=== PATIENT | female | born 1945 | race Two or more races ===

== ENCOUNTER 2018-07-28 19:10 | Observation (INO) | payer MEDICARE, MEDICAID ==
--- NOTE | 2018-07-28 19:34 | RADIOLOGY REPORT (SQ) ---
EXAM DESCRIPTION: CT HEAD WITHOUT COMPLETED DATE/TIME: 07/28/2018 7:21 pm REASON FOR STUDY: L sided weakness, leaning COMPARISON: None. TECHNIQUE: Axial images acquired through the brain without intravenous contrast. Images reviewed wi th bone, brain and subdural windows. Additional sagittal and coronal reconstructions were generated. Images stored on PACS. All CT scanners at this facility use dose modulation, iterative reconstruction, and/or weight based d osing when appropriate to reduce radiation dose to as low as reasonably achievable (ALARA). [facility]: Dose Right [facility]: CareDose [facility]: Dose Right [facility]: Teradose 4D [facility]: Smart Easy Tempo RADIATION DOSE: CT Rad equipment meets quality standard of care and radiation dose reduction techniq ues were employed. CTDIvol: 53.2 mGy. DLP: 1124 mGy-cm. mGy. LIMITATIONS: None. FINDINGS: VENTRICLES: Normal size and contour. CEREBRUM: No masses. No hemorrhage. No midline shift. No evidence for acute infarction. Normal gra y/white matter differentiation. No areas of low density in the white matter. CEREBELLUM: No masses. No hemorrhage. No alteration of density. No evidence for acute infarction. EXTRAAXIAL SPACES: No fluid collections. No masses. ORBITS AND GLOBE: No intra- or extraconal masses. Normal contour of globe without masses. CALVARIUM: No fracture. PARANASAL SINUSES: No fluid or mucosal thickening. SOFT TISSUES: No mass or hematoma. OTHER: No other significant finding. IMPRESSION: NORMAL BRAIN CT WITHOUT CONTRAST. EVIDENCE OF ACUTE STROKE: NO. COMMENT: Pertinent positive or negative findings of the imaging study reported as a CRITICAL EXAM t o ER PROVIDER at19:28 on 07/28/2018. Category of Critical Exam: Stroke protocol Quality ID # [id number]: Final reports with documentation of one or more dose reduction techniques (e.g., Au tomated exposure control, adjustment of the mA and/or kV according to patient size, use of iterative reconstruction technique) TECHNICAL DOCUMENTATION: JOB ID: [id number] [employer]- All Rights Reserved Reading location - IP/workstation name: [email or web address]
--- NOTE | 2018-07-28 19:35 | RADIOLOGY REPORT (SQ) ---
EXAM DESCRIPTION: CHEST SINGLE VIEW COMPLETED DATE/TIME: 07/28/2018 7:24 pm REASON FOR STUDY: STROKE ALERT COMPARISON: None. EXAM PARAMETERS: NUMBER OF VIEWS: One view. TECHNIQUE: Single frontal radiographic view of the chest acquired. RADIATION DOSE: NA LIMITATIONS: None. FINDINGS: LUNGS AND PLEURA: No opacities, masses or pneumothorax. No pleural effusion. MEDIASTINUM AND HILAR STRUCTURES: No masses. Contour normal. HEART AND VASCULAR STRUCTURES: Heart normal in size. Normal vasculature. BONES: No acute findings. HARDWARE: None in the chest. OTHER: No other significant finding. IMPRESSION: NO ACUTE RADIOGRAPHIC FINDING IN THE CHEST. TECHNICAL DOCUMENTATION: JOB ID: [id number] [email or web address]- All Rights Reserved Reading location - IP/workstation name: [email or web address]
[2018-07-28 20:32] LABS: ABSOLUTE LYMPHOCYTES (AUTO) 0.8 10^3/uL (0.5-4.7); ABSOLUTE MONOCYTES (AUTO) 0.8 10^3/uL (0.1-1.4); ABSOLUTE NEUT (AUTO) 6.1 10^3/uL (1.7-8.2); BASOPHILS % (AUTO) 0.3 % (0-2); EOSINOPHILS % (AUTO) 0.1 % (0-6); HEMATOCRIT 35.2 % (36.0-47.0); LYMPHOCYTES % (AUTO) 10.5 % (13-45); MEAN CORPUSCULAR HEMOGLOBIN 31.1 pg (27.0-33.4); MEAN CORPUSCULAR HGB CONC 34.1 g/dL (32.0-36.0); MEAN CORPUSCULAR VOLUME 91 fl (80-97); MONOCYTES % (AUTO) 10.4 % (3-13); RED BLOOD COUNT 3.86 10^6/uL (3.72-5.28); RED CELL DISTRIBUTION WIDTH 14.6 % (11.5-14.0); SEGMENTED NEUTROPHILS % (AUTO) 78.7 % (42-78); TOTAL CELLS COUNTED % (AUTO) 100 %; WHITE BLOOD COUNT 7.8 10^3/uL (4.0-10.5)
--- NOTE | 2018-07-28 20:42 | ER Document Report ---
ED Dizziness/Weakness - General Chief Complaint: Weakness Stated Complaint: WEAKNESS Time Seen by Provider: 07/28/18 19:32 Mode of Arrival: Stretcher Information source: Patient, Relative Notes: Patient is a 72-year-old female with a history of seizure disorder and hypertension who presents with reported weakness this morning approximately 12 hours prior to arrival. Patient reports that she felt weak this morning but "now I feel fine." Family at bedside is insistent that the patient was unable to walk and was leaning to the left. Patient denies headache, head injury, chest pain, weakness, or any other symptom at this time. She reports that she "feels like myself" and denies recent injury or illness. No recent medication changes. No history of stroke or heart attack. TRAVEL OUTSIDE OF THE [place] IN LAST 30 DAYS: No - HPI Patient complains to provider of: Weakness Onset: This morning Onset/Duration: Sudden Quality of pain: No pain Severity: Mild Pain Level: Denies Context: denies: Chronic dizziness, Trauma, Vertigo Associated symptoms: None Exacerbated by: denies: Change in position, Movement of head, Other Baseline gait: Uses a cane - Related Data Allergies/Adverse Reactions: amlodipine besylate [From NanoH2O] Allergy (Unknown, Verified 12/17/12 10:47) cant remember reaction Past Medical History - General Information source: Patient, Relative - Social History Smoking Status: Former Smoker Cigarette use (# per day): No Chew tobacco use (# tins/day): No Smoking Education Provided: No Frequency of alcohol use: None Drug Abuse: None Lives with: Family Family History: Reviewed & Not Pertinent Patient has suicidal ideation: No Patient has homicidal ideation: No - Medical History Medical History: Other - HTN, seizure disorder - Past Medical History Cardiac Medical History: Reports: Hx Hypertension - meds many years Denies: Hx Coronary Artery Disease, Hx Heart Attack Pulmonary Medical History: Denies: Hx Asthma, Hx Bronchitis, Hx COPD, Hx Pneumonia EENT Medical History: Reports: None Neurological Medical History: Reports: Hx Seizures - last one 2005. Denies: Hx Cerebrovascular Accident Endocrine Medical History: Reports: None Renal/ Medical History: Reports: None Malignancy Medical History: Reports: None GI Medical History: Reports: None Musculoskeletal Medical History: Reports None, Denies Hx Arthritis - no dx Skin Medical History: Reports None Psychiatric Medical History: Reports: None Traumatic Medical History: Reports: None Infectious Medical History: Reports: None Surgical Hx: Negative Past Surgical History: Reports: None - Immunizations Immunizations up to date: Yes Hx Diphtheria, Pertussis, Tetanus Vaccination: No Review of Systems - Review of Systems Constitutional: Weakness. denies: Fever, Malaise EENT: No symptoms reported Cardiovascular: No symptoms reported Respiratory: No symptoms reported Gastrointestinal: No symptoms reported Genitourinary: No symptoms reported Female Genitourinary: No symptoms reported Musculoskeletal: No symptoms reported Skin: No symptoms reported Hematologic/Lymphatic: No symptoms reported Neurological/Psychological: No symptoms reported -: Yes All other systems reviewed and negative Physical Exam - Vital signs Vitals: Resp Pulse Ox 21 H 100 07/28/18 19:30 07/28/18 19:30 Interpretation: Normal - General General appearance: Appears well, Alert - HEENT Head: Normocephalic, Atraumatic Eyes: Normal Pupils: PERRL - Respiratory Respiratory status: No respiratory distress Chest status: Nontender Breath sounds: Normal Chest palpation: Normal - Cardiovascular Rhythm: Regular Heart sounds: Normal auscultation Murmur: No - Abdominal Inspection: Normal Distension: No distension Bowel sounds: Normal Tenderness: Nontender Organomegaly: No organomegaly - Rectal Tenderness: No - Deferred - Genitourinary Notes: Deferred - Back Back: Normal, Nontender - Extremities General upper extremity: Normal inspection, Nontender, Normal color, Normal ROM , Normal temperature General lower extremity: Normal inspection, Nontender, Normal color, Normal ROM , Normal temperature, Normal weight bearing. No: Ileana's sign - Neurological Neuro grossly intact: Yes Cognition: Normal Orientation: AAOx4 [place] Coma Scale Eye Opening: Spontaneous [place] Coma Scale Verbal: Oriented [place] Coma Scale Motor: Obeys Commands [place] Coma Scale Total: 15 Speech: Normal Motor strength normal: LUE, RUE, LLE, RLE Sensory: Normal - Psychological Associated symptoms: Normal affect, Normal mood - Skin Skin Temperature: Warm Skin Moisture: Dry Skin Color: Normal Course - Re-evaluation Re-evalutation: 07/28/18 21:04 Blood work, including cardiac enzymes and BNP, are normal. Urinalysis is still pending. Head CT and chest x-ray are both normal without acute pathology. Patient will be admitted for likely transient ischemic attack. 07/28/18 21:28 Dr. Pacheco will admit the patient. - Vital Signs Vital signs: Temp Pulse Resp BP Pulse Ox 16 163/103 H 100 07/28/18 22:03 07/28/18 22:03 07/28/18 22:03 - Laboratory Result Diagrams: 07/28/18 19:57 07/28/18 19:57 Laboratory results interpreted by me: 07/28/18 07/28/18 07/28/18 19:57 19:57 21:01 Hct 35.2 L RDW 14.6 H Plt Count 88 L Seg Neutrophils % 78.7 H Lymphocytes % 10.5 L Est GFR (Non-Af Amer) 51 L Calcium 11.4 H ALT < 6 L Total Protein 8.3 H Urine Blood MODERATE H Ur Leukocyte Esterase MODERATE H - Diagnostic Test Radiology reviewed: Reports reviewed - EKG Interpretation by Me EKG shows normal: Sinus rhythm Rate: Normal Rhythm: NSR Flom/QRS: No: Right axis deviation, Left axis deviation, RBBB, LBBB, IVCD, LAHB/ LAFB, LPHB/LPFB, Bifasicular block Heart block present: No: 1st Degree, Mobitz 1, Mobitz 2, CHB (3rd degree block) When compared to previous EKG there are: No significant change - Consults Dr. Pacheco Time consulted: 21:28 - Will admit the patient Consulted provider: will come to ER Discharge - Discharge Clinical Impression: Weakness, TIA (transient ischemic attack) Condition: Good Disposition: ADMITTED INPATIENT Admitting Provider: Hospitalist Unit Admitted: Medical Floor Referrals: KAMILA SIERRA MD [Primary Care Provider] - Follow up as needed
[2018-07-28 20:47] LABS: ALANINE AMINOTRANSFERASE < 6 U/L (9-52); ALBUMIN 4.1 g/dL (3.5-5.0); ALKALINE PHOSPHATASE 41 U/L (38-126); ANION GAP 13 (5-19); ASPARTATE AMINO TRANSFERASE 26 U/L (14-36); BILIRUBIN,DIRECT 0.4 mg/dL (0.0-0.4); BILIRUBIN,TOTAL 0.5 mg/dL (0.2-1.3); BLOOD UREA NITROGEN 18 mg/dL (7-20); CALCIUM 11.4 mg/dL (8.4-10.2); CARBON DIOXIDE 28 mmol/L (22-30); CHLORIDE 102 mmol/L (98-107); CREATINE KINASE 32 U/L (30-135); GLUCOSE 96 mg/dL (75-110); POTASSIUM 4.2 mmol/L (3.6-5.0); SODIUM 142.9 mmol/L (137-145); TOTAL PROTEIN 8.3 g/dL (6.3-8.2)
[2018-07-28 20:49] LABS: ALCOHOL < 10 mg/dL (NONE DETECTED)
[2018-07-28 20:58] LABS: PLATELET COUNT 88 10^3/uL (150-450)
[2018-07-28 21:02] LABS: NT PRO BNP 165 pg/mL (5-900)
[2018-07-28 21:03] LABS: CREATINE KINASE MB < 0.22 ng/mL (<4.55); TROPONIN I < 0.012 ng/mL
[2018-07-28 21:22] LABS: APPEARANCE,URINE SLIGHTLY-CLOUDY; BILIRUBIN,URINE NEGATIVE (NEGATIVE); COLOR,URINE YELLOW; GLUCOSE, URINE NEGATIVE (NEGATIVE); KETONES,URINE NEGATIVE (NEGATIVE); LEUKOCYTE ESTERASE,URINE MODERATE (NEGATIVE); NITRITE,URINE NEGATIVE (NEGATIVE); PROTEIN,URINE NEGATIVE (NEGATIVE); URINE SPECIFIC GRAVITY 1.014; UROBILINOGEN,URINE NEGATIVE mg/dL (<2.0)
[2018-07-28 21:35] LABS: URINE AMPHETAMINES SCREEN NEGATIVE; URINE BARBITURATES SCREEN NEGATIVE; URINE BENZODIAZEPINES SCREEN NEGATIVE; URINE COCAINE SCREEN NEGATIVE; URINE MARIJUANA (THC) SCREEN NEGATIVE; URINE METHADONE SCREEN NEGATIVE; URINE PHENCYCLIDINE SCREEN NEGATIVE
[2018-07-28] MEDS ORDERED: ACETAMINOPHEN 325 MG TABLET PO PRN (23:07)
[2018-07-28] MEDS ORDERED: MAG HYDROX/AL HYDROX/SIMETH SUSP 30 ML UDCUP PO PRN (23:07)
[2018-07-28] MEDS ORDERED: NORMAL SALINE 1000 ML 1,000 ML IV PRN (23:07)
[2018-07-28] MEDS ORDERED: PROMETHAZINE HCL 25 MG TABLET PO PRN (23:07)
[2018-07-28] MEDS ORDERED: PROMETHAZINE HCL INJ 25 MG/1 ML VIAL IV PRN (23:07)
[2018-07-28] MEDS ORDERED: METOPROLOL TARTRATE PF/INJ 5 MG/5 ML SDV IV PRN (23:17)
[2018-07-28] MEDS ORDERED: PANTOPRAZOLE SODIUM 40 MG VIAL IV ONE (23:30)
[2018-07-28] MEDS ORDERED: DIVALPROEX SODIUM 250 MG TABLET.DR PO ONE (23:30)
[2018-07-28] MEDS ORDERED: METOPROLOL SUCCINATE 50 MG TAB.SR.24H PO ONE (23:30)
--- NOTE | 2018-07-29 00:22 | PDOC H&P ---
History of Present Illness Admission Date/PCP: 07/28/18 22:55 KAMILA SIERRA MD Patient complains of: Lower extremity weakness History of Present Illness: MORGAN ESPINAL is a 72 year old female who is accompanied by his niece at the bedside and has medical history remarkable for hypertension, seizures and "ophthalmic amyloidosis", comes to the emergency department as worsening lower extremities weakness, apparently went out to pay some bills and the patient was unable to get out of the car, it was noted that she was weaker on her right lower extremities, she denies any tingling, numbness of any extremity, vision problems, his niece tells me that she was doing if any movements with the right side of her mouth and tells me that she noticed that her 4 extremities are stiff on and off. Patient walks with a walker secondary to unsteadiness. The patient does not have any history of strokes in the past. Denies nausea, vomiting, dizziness, fever, chills, shortness of breath, chest pain, abdominal pain. Denies fecal or urinary incontinence. Patient seems mildly confused in the emergency department unable to answer some questions timely and her niece tells me that this is not her baseline usually she is sharp answering questions. CT of the head negative. There was concerns for TIA versus acute stroke and decided to keep the patient under observation tonight. Past Medical History Past Medical History: Eyes amyloidosis Cardiac Medical History: Reports: Hypertension - meds many years Neurological Medical History: Reports: Seizures - last one 2005 Endocrine Medical History: Reports: None Renal/ Medical History: Reports: None Malignancy Medical History: Reports: None GI Medical History: Reports: None Musculoskeltal Medical History: Reports: None Skin Medical History: Reports: None Psychiatric Medical History: Reports: None Traumatic Medical History: Reports: None Infectious Medical History: Reports: None Past Surgical History Past Surgical History: Reports: None Social History Lives with: Family Smoking Status: Former Smoker Frequency of Alcohol Use: None Hx Recreational Drug Use: No Hx Prescription Drug Abuse: No Past Social History Note: Lives alone but her niece check on her Family History Family History: Reviewed & Not Pertinent Family History: Knees with history of myocardial infarction, father in his 50s with brain cancer, mother at 83 years old with heart problems, sister, brother with history of IA, 3 brothers with Alzheimer's disease Parental Family History Reviewed: Yes - As above Children Family History Reviewed: Yes Sibling(s) Family History Reviewed.: Yes Medication/Allergy Home Medications: Cholecalciferol (Vitamin D3) [Vitamin D3 5000 unit Tablet] 5,000 unit PO DAILY 12/17/12 Meloxicam 7.5 mg PO PRN 12/17/12 Metoprolol Succinate [Toprol Xl 50 mg Tab.sr] 50 mg PO QHS 12/17/12 Phenobarbital 200 mg PO QHS 12/17/12 Phenytoin Sodium Extended [Dilantin] 60 mg PO QHS 12/17/12 Potassium Chloride 10 meq PO DAILY 12/17/12 Tramadol HCl 50 mg PO DAILY 12/17/12 Triamterene/Hydrochlorothiazid [Triamterene-Hctz 50-25 mg Cap] 1 each PO DAILY 12/17/12 Allergies/Adverse Reactions: amlodipine besylate [From Electrochaea] Allergy (Unknown, Verified 12/17/12 10:47) cant remember reaction Review of Systems Review of Systems: As outlined in the HPI, all others negative Physical Exam Vital Signs: Temp Pulse Resp BP Pulse Ox 77 21 H 138/80 H 98 07/28/18 23:08 07/28/18 23:08 07/28/18 23:08 07/28/18 23:08 Intake & Output 07/27/18 07/28/18 07/29/18 06:59 06:59 06:59 Weight 68.8 kg Additional comments: General appearance: Well-developed, well-nourished, alert and cooperative, and appears to be in no acute distress Head: Normocephalic Eyes: PEERL, EOMI, vision is grossly intact. Ears: External auditory canal and tympanic membranes clear, hearing grossly intact. Nose: No nasal discharge. Throat: Oral cavity and pharynx normal. No inflammation, swelling, exudate or lesions. Neck: Neck supple, nontender without lymphadenopathy, masses or thyromegaly. Cardiac: Normal S1 and S2. No S3, S4 or murmurs. Rhythm is regular. There is no cyanosis or pallor. Extremities are warm and well perfused. Capillary refill is less than 2 seconds. No carotid bruits. Lungs: Clear to auscultation and percussion without rales, rhonchi, wheezing or diminished breath sounds. Not using accessory muscles. Abdomen: Positive bowel sounds. Soft. Nondistended, nontender. No guarding or rebound. No masses. No hepatosplenomegaly Extremities: No significant deformity or joint abnormality. No edema. Peripheral pulses intact. No varicosities. Neurological: Cranial nerves II through XII grossly intact. Strength and sensation decreased in both lower extremities, cannot hold any of both lower extremities up on 30 degrees Skin: Skin normal color, texture and turgor with no lesions or eruptions, warm and dry. Psychiatric: The mental examination revealed the patient was oriented to person , unable to tell me the year, knows the month, could not tell me the president, was able to recognize her knees. Results Laboratory Results: 07/28/18 07/28/18 07/28/18 19:57 19:57 19:57 WBC 7.8 RBC 3.86 Hgb 12.0 Hct 35.2 L MCV 91 MCH 31.1 MCHC 34.1 RDW 14.6 H Plt Count 88 L Seg Neutrophils % 78.7 H Lymphocytes % 10.5 L Monocytes % 10.4 Eosinophils % 0.1 Basophils % 0.3 Absolute Neutrophils 6.1 Absolute Lymphocytes 0.8 Absolute Monocytes 0.8 Absolute Eosinophils 0.0 Absolute Basophils 0.0 Sodium 142.9 Potassium 4.2 Chloride 102 Carbon Dioxide 28 Anion Gap 13 BUN 18 Creatinine 1.06 Est GFR ( Amer) > 60 Est GFR (Non-Af Amer) 51 L Glucose 96 Calcium 11.4 H Total Bilirubin 0.5 Direct Bilirubin 0.4 AST 26 ALT < 6 L Alkaline Phosphatase 41 Creatine Kinase 32 CK-MB (CK-2) < 0.22 Troponin I < 0.012 NT-Pro-B Natriuret Pep 165 Total Protein 8.3 H Albumin 4.1 Urine Color Urine Appearance Urine pH Ur Specific [place] Urine Protein Urine Glucose (UA) Urine Ketones Urine Blood Urine Nitrite Urine Bilirubin Urine Urobilinogen Ur Leukocyte Esterase Urine WBC (Auto) Urine RBC (Auto) Squamous Epi Cells Auto Urine Mucus (Auto) Urine Ascorbic Acid Urine Opiates Screen Urine Methadone Screen Ur Barbiturates Screen Ur Phencyclidine Scrn Ur Amphetamines Screen U Benzodiazepines Scrn Urine Cocaine Screen U Marijuana (THC) Screen Serum Alcohol < 10 07/28/18 07/28/18 21:01 21:01 WBC RBC Hgb Hct MCV MCH MCHC RDW Plt Count Seg Neutrophils % Lymphocytes % Monocytes % Eosinophils % Basophils % Absolute Neutrophils Absolute Lymphocytes Absolute Monocytes Absolute Eosinophils Absolute Basophils Sodium Potassium Chloride Carbon Dioxide Anion Gap BUN Creatinine Est GFR ( Amer) Est GFR (Non-Af Amer) Glucose Calcium Total Bilirubin Direct Bilirubin AST ALT Alkaline Phosphatase Creatine Kinase CK-MB (CK-2) Troponin I NT-Pro-B Natriuret Pep Total Protein Albumin Urine Color YELLOW Urine Appearance SLIGHTLY-CLOUDY Urine pH 5.0 Ur Specific [place] 1.014 Urine Protein NEGATIVE Urine Glucose (UA) NEGATIVE Urine Ketones NEGATIVE Urine Blood MODERATE H Urine Nitrite NEGATIVE Urine Bilirubin NEGATIVE Urine Urobilinogen NEGATIVE Ur Leukocyte Esterase MODERATE H Urine WBC (Auto) 17 Urine RBC (Auto) 2 Squamous Epi Cells Auto 1 Urine Mucus (Auto) RARE Urine Ascorbic Acid NEGATIVE Urine Opiates Screen NEGATIVE Urine Methadone Screen NEGATIVE Ur Barbiturates Screen NEGATIVE Ur Phencyclidine Scrn NEGATIVE Ur Amphetamines Screen NEGATIVE U Benzodiazepines Scrn NEGATIVE Urine Cocaine Screen NEGATIVE U Marijuana (THC) Screen NEGATIVE Serum Alcohol Impressions: Chest X-Ray 07/28/18 00:00 IMPRESSION: NO ACUTE RADIOGRAPHIC FINDING IN THE CHEST. Head CT 07/28/18 00:00 IMPRESSION: NORMAL BRAIN CT WITHOUT CONTRAST. EVIDENCE OF ACUTE STROKE: NO. Assessment & Plan - Diagnosis (1) Weakness Is this a current diagnosis for this admission?: Yes Plan: Patient comes with lower extremity weakness, there is bilateral but apparently some point here right lower extremity was weaker than the left, at the time of my examination both at the same strenght 2-3/5. I am not too convinced that this is secondary to TIA or acute stroke, for now I will place an order for an MRI of the brain, PT, OT and patient has to be reevaluated to order full core measures. Patient usually walks with a cane for steadiness. Today patient noted mildly confused from her baseline. CT of the head negative. (2) Seizure disorder Is this a current diagnosis for this admission?: Yes Plan: Patient with history of seizure disorder, will continue with her divalproex, I can see that she was on phenytoin in the past but I could not see this medication in her bag of medications in the room. We will have to clarify if she is on this medication to resume it. (3) Acute encephalopathy Is this a current diagnosis for this admission?: Yes Plan: Patient comes mildly confused, as per her niece this is not her baseline. MRI of the brain has been ordered. Urinalysis negative for acute infection. (4) Hypertension Qualifiers: Hypertension type: unspecified Qualified Code(s): I10 - Essential (primary ) hypertension Is this a current diagnosis for this admission?: Yes Plan: Blood pressure 121/86, we are going to try to not drop this blood pressure much , place her on IV metoprolol as needed. Patient will have some permissive hypertension and to clarify her diagnosis. (5) DVT prophylaxis Is this a current diagnosis for this admission?: Yes Plan: Lovenox - Time Time Spent: 50 to 70 Minutes - Plan Summary Plan Summary: Plan discussed with patient and niece at the bedside, agree with it.
[2018-07-29 04:17] LABS: HEMATOCRIT 32.9 % (36.0-47.0); HEMOGLOBIN 11.3 g/dL (12.0-15.5); MEAN CORPUSCULAR HEMOGLOBIN 31.1 pg (27.0-33.4); MEAN CORPUSCULAR HGB CONC 34.4 g/dL (32.0-36.0); MEAN CORPUSCULAR VOLUME 90 fl (80-97); RED BLOOD COUNT 3.64 10^6/uL (3.72-5.28); RED CELL DISTRIBUTION WIDTH 14.1 % (11.5-14.0); WHITE BLOOD COUNT 7.2 10^3/uL (4.0-10.5)
[2018-07-29 04:19] LABS: PLATELET COUNT 68 10^3/uL (150-450)
[2018-07-29 04:38] LABS: ANION GAP 10 (5-19); BLOOD UREA NITROGEN 17 mg/dL (7-20); CALCIUM 10.6 mg/dL (8.4-10.2); CARBON DIOXIDE 28 mmol/L (22-30); CHLORIDE 103 mmol/L (98-107); GLUCOSE 120 mg/dL (75-110); POTASSIUM 3.5 mmol/L (3.6-5.0); SODIUM 141.2 mmol/L (137-145)
[2018-07-29] MEDS ORDERED: TRAMADOL HCL 50 MG TABLET PO SCH (10:00)
[2018-07-29] MEDS ORDERED: POTASSIUM CHLORIDE 10 MEQ CAPSULE.ER PO SCH (10:00)
[2018-07-29] MEDS ORDERED: ENOXAPARIN SODIUM INJ 40 MG/0.4 ML DISP.SYRIN SUBCUT SCH (10:00)
[2018-07-29] MEDS ORDERED: [UNRECOGNIZED DRUG - OTHER] PO SCH (10:00)
[2018-07-29] MEDS ORDERED: MELOXICAM 7.5 MG TABLET PO SCH (10:00)
[2018-07-29] MEDS ORDERED: CHOLECALCIFEROL (D3) 1,000 UNIT TABLET PO SCH (10:00)
--- NOTE | 2018-07-29 11:23 | EKG REPORT ---
SEVERITY:- ABNORMAL ECG - SINUS RHYTHM PROBABLE POSTERIOR INFARCT : Confirmed by: Vikas Gorman 29-Jul-2018 11:22:24
[2018-07-29] MEDS: DIVALPROEX SODIUM 250 MG TABLET.DR PO SCH ×2 (11:31→17:29)
--- NOTE | 2018-07-29 12:06 | RADIOLOGY REPORT (SQ) ---
EXAM DESCRIPTION: MRI HEAD WITHOUT COMPLETED DATE/TIME: 07/29/2018 10:34 am REASON FOR STUDY: acute change/facial droop left-sided weakness COMPARISON: CT brain 07/28/2018 TECHNIQUE: Multiplanar imaging includes non-contrasted T1, T2, FLAIR, and diffusion with ADC map seq uences. Images stored on PACS. LIMITATIONS: None. FINDINGS: ANATOMY: No developmental anomalies. Normal vascular flow voids. Pituitary fossa normal. CSF SPACES: Normal in size and contour. No hemorrhage. CEREBRUM: Sulci and gyri normal in size and contour. Normal white matter signal on FLAIR imaging. No evidence of hemorrhage, mass, or extraaxial fluid collection. POSTERIOR FOSSA: Minimal pontine chronic small vessel ischemic change on FLAIR image 10 and 11. No h emorrhage. No edema, masses or mass effect. Internal auditory canals, cerebello-pontine angles, mast oids normal. DIFFUSION IMAGING: Negative for acute or sub-acute infarction. ORBITS: No masses. Globes post cataract surgery PARANASAL SINUSES: No fluid levels. Mucosa normal. OTHER: No other significant finding. IMPRESSION: Tiny chronic appearing pontine infarcts. No acute ischemic change. No acute intracranial hemorrhage, mass effect, or midline shift EVIDENCE OF ACUTE STROKE: NO. TECHNICAL DOCUMENTATION: JOB ID: [id number] [employer]- All Rights Reserved Reading location - IP/workstation name: [email or web address]
--- NOTE | 2018-07-29 19:02 | PDOC PROGRESS REPORT ---
Subjective Progress Note for:: 07/29/18 Subjective:: Ms. Pinzon is a 72 yr old female with a PMH of hypertension, seizures and "ophthalmic amyloidosis" who was initially brought in due to worsening leg weakness (?R>L leg). She was admitted for possible TIA. Upon encounter this morning, she was not in distress. She denies acute complaint. She was noted to have very mild right foot weakness initially but on repeated testing, she had equal lower extremity strength. She was also able to squeeze both hands of examining provider with equal strength. Reason For Visit: LOWER EXTREMITIES, WEAKNESS Physical Exam Vital Signs: Temp Pulse Resp BP Pulse Ox 98.2 F 59 L 18 138/81 H 100 07/29/18 16:00 07/29/18 18:00 07/29/18 18:12 07/29/18 18:12 07/29/18 18:12 Intake & Output 07/28/18 07/29/18 07/30/18 06:59 06:59 06:59 Output Total 200 200 Balance -200 -200 Weight 131 lb 9.855 oz General appearance: PRESENT: no acute distress, well-developed, well-nourished Head exam: PRESENT: atraumatic, normocephalic Eye exam: PRESENT: conjunctiva pink, EOMI, PERRLA. ABSENT: scleral icterus Ear exam: PRESENT: normal external ear exam Mouth exam: PRESENT: moist, tongue midline Neck exam: ABSENT: carotid bruit, JVD, lymphadenopathy, thyromegaly Respiratory exam: PRESENT: clear to auscultation shilpa. ABSENT: rales, rhonchi, wheezes Cardiovascular exam: PRESENT: RRR. ABSENT: diastolic murmur, rubs, systolic murmur Pulses: PRESENT: normal dorsalis pedis pul GI/Abdominal exam: PRESENT: normal bowel sounds, soft. ABSENT: distended, guarding, mass, organolmegaly, rebound, tenderness Rectal exam: PRESENT: deferred Neurological exam: PRESENT: alert, awake, motor sensory deficit - 4+ right motor strength on right leg Results Laboratory Results: 07/29/18 04:07 07/29/18 04:07 07/29/18 07/29/18 07/29/18 04:07 04:07 04:07 WBC 7.2 RBC 3.64 L Hgb 11.3 L Hct 32.9 L MCV 90 MCH 31.1 MCHC 34.4 RDW 14.1 H Plt Count 68 L Sodium 141.2 Potassium 3.5 L Chloride 103 Carbon Dioxide 28 Anion Gap 10 BUN 17 Creatinine 0.98 Est GFR ( Amer) > 60 Est GFR (Non-Af Amer) 56 L Glucose 120 H Calcium 10.6 H TSH 1.95 Impressions: Chest X-Ray 07/28/18 00:00 IMPRESSION: NO ACUTE RADIOGRAPHIC FINDING IN THE CHEST. Head CT 07/28/18 00:00 IMPRESSION: NORMAL BRAIN CT WITHOUT CONTRAST. EVIDENCE OF ACUTE STROKE: NO. Head MRI 07/29/18 00:00 IMPRESSION: Tiny chronic appearing pontine infarcts. No acute ischemic change. No acute intracranial hemorrhage, mass effect, or midline shift EVIDENCE OF ACUTE STROKE: NO. Assessment & Plan - Diagnosis (1) TIA (transient ischemic attack) Is this a current diagnosis for this admission?: Yes Plan: Patient was admitted for possible TIA due to her leg weakness with very mild difference R>L. MRI brain ordered. Will also check lipid panel. Will add aspirin. PT/OT consult. (2) Acute encephalopathy Is this a current diagnosis for this admission?: Yes Plan: Improving. Patient is now (3) Thrombocytopenia Is this a current diagnosis for this admission?: Yes Plan: Platelet has trended down. Hold off on lovenox for now. Will repeat CBC tomorrow. - Time Time Spent with patient: 15-24 minutes
[2018-07-29] MEDS ORDERED: METOPROLOL SUCCINATE 50 MG TAB.SR.24H PO SCH (22:00)
[2018-07-30 04:19] LABS: CHOLESTEROL 146.86 mg/dL (0-200); TRIGLYCERIDES 80 mg/dL (<150)
[2018-07-30 04:30] LABS: DIRECT LDL 68 mg/dL (<100)
[2018-07-30] MEDS ORDERED: ASPIRIN 81 MG TABLET, CHEWABLE PO SCH (10:00)
[2018-07-30 10:39] LABS: HEMATOCRIT 31.6 % (36.0-47.0); HEMOGLOBIN 10.9 g/dL (12.0-15.5); MEAN CORPUSCULAR HEMOGLOBIN 31.4 pg (27.0-33.4); MEAN CORPUSCULAR HGB CONC 34.6 g/dL (32.0-36.0); MEAN CORPUSCULAR VOLUME 91 fl (80-97); RED BLOOD COUNT 3.48 10^6/uL (3.72-5.28); RED CELL DISTRIBUTION WIDTH 14.6 % (11.5-14.0); WHITE BLOOD COUNT 4.9 10^3/uL (4.0-10.5)
[2018-07-30 10:43] LABS: ANION GAP 12 (5-19); BLOOD UREA NITROGEN 15 mg/dL (7-20); CALCIUM 10.5 mg/dL (8.4-10.2); CARBON DIOXIDE 25 mmol/L (22-30); CHLORIDE 105 mmol/L (98-107); GLUCOSE 117 mg/dL (75-110); POTASSIUM 3.6 mmol/L (3.6-5.0); SODIUM 141.8 mmol/L (137-145)
[2018-07-30 11:18] LABS: PLATELET COUNT 73 10^3/uL (150-450)
[2018-07-30] MEDS: POTASSIUM CHLORIDE 10 MEQ CAPSULE.ER PO SCH (12:08)
[2018-07-30] MEDS: METOPROLOL SUCCINATE 25 MG TAB.SR.24H PO SCH (12:08)
[2018-07-30] MEDS: ASPIRIN 81 MG TABLET, CHEWABLE PO SCH (12:08)
[2018-07-30] MEDS: DIVALPROEX SODIUM 250 MG TABLET.DR PO SCH ×2 (12:08→21:33)
[2018-07-30] MEDS: CHOLECALCIFEROL (D3) 1,000 UNIT TABLET PO SCH (12:08)
--- NOTE | 2018-07-30 16:56 | PDOC PROGRESS REPORT ---
Subjective Progress Note for:: 07/30/18 Subjective:: Ms. Pinzon is a 72 yr old female with a PMH of hypertension, seizures and "ophthalmic amyloidosis" who was initially brought in due to worsening leg weakness (?R>L leg). She was admitted for possible TIA. No acute event overnight. Upon encounter this morning, she was not in distress. Patient is more awake and coherent this morning. Her weakness has resolved and she was able to ambulate well with PT. She will be downgraded to the floor. Reason For Visit: LOWER EXTREMITIES, WEAKNESS Physical Exam Vital Signs: Temp Pulse Resp BP Pulse Ox 97.6 F 62 14 159/84 H 100 07/30/18 12:00 07/30/18 12:00 07/30/18 15:00 07/30/18 12:00 07/30/18 15:00 Intake & Output 07/29/18 07/30/18 07/31/18 06:59 06:59 06:59 Intake Total 240 651 Output Total 200 200 Balance -200 40 651 Weight 131 lb 9.855 oz 148 lb 9.465 oz General appearance: PRESENT: no acute distress, well-developed, well-nourished Head exam: PRESENT: atraumatic, normocephalic Eye exam: PRESENT: conjunctiva pink, EOMI, PERRLA. ABSENT: scleral icterus Ear exam: PRESENT: normal external ear exam Mouth exam: PRESENT: moist, tongue midline Neck exam: ABSENT: carotid bruit, JVD, lymphadenopathy, thyromegaly Respiratory exam: PRESENT: clear to auscultation shilpa. ABSENT: rales, rhonchi, wheezes Cardiovascular exam: PRESENT: RRR. ABSENT: diastolic murmur, rubs, systolic murmur Pulses: PRESENT: normal dorsalis pedis pul GI/Abdominal exam: PRESENT: normal bowel sounds, soft. ABSENT: distended, guarding, mass, organolmegaly, rebound, tenderness Rectal exam: PRESENT: deferred Extremities exam: PRESENT: full ROM. ABSENT: calf tenderness, clubbing, pedal edema Neurological exam: PRESENT: alert, awake, oriented to person, oriented to place , CN II-XII grossly intact. ABSENT: motor sensory deficit Results Laboratory Results: 07/30/18 03:49 07/30/18 03:49 07/30/18 07/30/18 07/30/18 03:49 03:49 03:49 WBC 4.9 RBC 3.48 L Hgb 10.9 L Hct 31.6 L MCV 91 MCH 31.4 MCHC 34.6 RDW 14.6 H Plt Count 73 L Sodium 141.8 Potassium 3.6 Chloride 105 Carbon Dioxide 25 Anion Gap 12 BUN 15 Creatinine 1.21 Est GFR ( Amer) 53 L Est GFR (Non-Af Amer) 44 L Glucose 117 H Calcium 10.5 H Triglycerides 80 Cholesterol 146.86 LDL Cholesterol Direct 68 VLDL Cholesterol 16.0 HDL Cholesterol 52 Impressions: Chest X-Ray 07/28/18 00:00 IMPRESSION: NO ACUTE RADIOGRAPHIC FINDING IN THE CHEST. Head CT 07/28/18 00:00 IMPRESSION: NORMAL BRAIN CT WITHOUT CONTRAST. EVIDENCE OF ACUTE STROKE: NO. Head MRI 07/29/18 00:00 IMPRESSION: Tiny chronic appearing pontine infarcts. No acute ischemic change. No acute intracranial hemorrhage, mass effect, or midline shift EVIDENCE OF ACUTE STROKE: NO. Assessment & Plan - Diagnosis (1) TIA (transient ischemic attack) Is this a current diagnosis for this admission?: Yes Plan: Patient was admitted for possible TIA due to her leg weakness with very mild difference R>L. Her weakness has resolved. MRI brain came back normal. Continue aspirin. She ambulated well with PT today. (2) Acute encephalopathy Is this a current diagnosis for this admission?: Yes Plan: Resolved. (3) Thrombocytopenia Is this a current diagnosis for this admission?: Yes Plan: Platelet was 88 on admission with 151 in 2013. Lovenox held. SCDs for now. (4) Hypertension Qualifiers: Hypertension type: unspecified Qualified Code(s): I10 - Essential (primary ) hypertension Is this a current diagnosis for this admission?: Yes Plan: On Lopressor. Resume hydrochlorothiazide-triamterene. - Time Time Spent with patient: 15-24 minutes
[2018-07-30] MEDS ORDERED: (PENDING PHARMACY ID) (Triamterene/Hydrochlorothiazid [Triamterene-Hctz 37.5-25 Mg Cp] 1 C PO SCH (17:00)
[2018-07-30] MEDS: TRIAMTERENE/HYDROCHLOROTHIAZIDE 37.5-25 MG TABLET PO SCH (19:31)
[2018-07-30] MEDS ORDERED: TRIAMTERENE/HYDROCHLOROTHIAZIDE 37.5-25 MG TABLET PO ONE (22:00)
[2018-07-31] MEDS: DIVALPROEX SODIUM 250 MG TABLET.DR PO SCH (09:21)
[2018-07-31] MEDS: ASPIRIN 81 MG TABLET, CHEWABLE PO SCH (09:21)
[2018-07-31] MEDS: METOPROLOL SUCCINATE 25 MG TAB.SR.24H PO SCH (09:21)
[2018-07-31] MEDS: TRIAMTERENE/HYDROCHLOROTHIAZIDE 37.5-25 MG TABLET PO SCH (09:22)
[2018-07-31] MEDS: POTASSIUM CHLORIDE 10 MEQ CAPSULE.ER PO SCH (09:22)
[2018-07-31] MEDS: CHOLECALCIFEROL (D3) 1,000 UNIT TABLET PO SCH (11:03)
--- NOTE | 2018-07-31 11:17 | RADIOLOGY REPORT (SQ) ---
EXAM DESCRIPTION: CAROTID DOPPLER COMPLETED DATE/TIME: 07/31/2018 11:06 am REASON FOR STUDY: tia E78.49 OTHER HYPERLIPIDEMIA E87.6 HYPOKALEMIA COMPARISON: None. TECHNIQUE: Grayscale ultrasound, Doppler velocity and spectra, and color Doppler images acquired of the extra-cranial carotid and vertebral arteries. Images stored on PACS. LIMITATIONS: Patient motion. FINDINGS: RIGHT CAROTID CCA Velocities: Within normal limits. ICA Velocities Peak systolic 0.68 m/s. End diastolic 0.21 m/s. Proximal ICA/CCA peak systolic ratio 1.2. Mild intimal thickening. LEFT CAROTID CCA Velocities: Within normal limits. ICA Velocities Peak systolic 0.65 m/s. End diastolic 0.17 m/s. Proximal ICA/CCA peak systolic ratio 1.2. Mild intimal thickening. VERTEBRAL ARTERIES: Antegrade flow. Normal waveforms. SUBCLAVIAN ARTERIES: Not imaged. OTHER: No other significant finding. IMPRESSION: NO HEMODYNAMICALLY SIGNIFICANT STENOSIS. COMMENT: Quality ID #[id number]: Velocity criteria are extrapolated from the diameter data as defined by t he Society of Radiologists in Ultrasound Consensus Conference. Radiology 2003: 229; 340-346. TECHNICAL DOCUMENTATION: JOB ID: [id number] [employer] All Rights Reserved Reading location - IP/workstation name: [facility]-RR
[2018-07-31 16:17] VITALS: BP 144/76
--- NOTE | 2018-07-31 17:51 | PDOC DISCHARGE SUMMARY ---
General - Admit/Disc Date/PCP Admission Date/Primary Care Provider: 07/28/18 22:55 Keiko BOB Discharge Date: 07/31/18 - Discharge Diagnosis (1) TIA (transient ischemic attack) Is this a current diagnosis for this admission?: Yes (2) Acute encephalopathy Is this a current diagnosis for this admission?: Yes (3) Thrombocytopenia Is this a current diagnosis for this admission?: Yes (4) Hypertension Is this a current diagnosis for this admission?: Yes - Additional Information Resuscitation Status: Full Code Discharge Diet: Regular Discharge Activity: Activity As Tolerated Prescriptions: Aspirin [Aspirin 81 mg Chewable Tablet] 81 mg PO DAILY #30 tab.chew Home Medications: Cholecalciferol (Vitamin D3) [Vitamin D3] 1,000 unit PO DAILY 07/29/18 Divalproex Sodium [Depakote] 250 mg PO Q12 07/29/18 Metoprolol Succinate [Toprol Xl 25 mg Tab.sr] 25 mg PO DAILY 07/29/18 Potassium Chloride [K-Tab ER] 10 meq PO DAILY 07/29/18 Triamterene/Hydrochlorothiazid [Triamterene-Hctz 37.5-25 mg Cp] 1 cap PO DAILY 07/29/18 Aspirin [Aspirin 81 mg Chewable Tablet] 81 mg PO DAILY #30 tab.chew 07/31/18 History of Present Illness History of Present Illness: Admitting hospitalist's &P: MORGAN PINZON is a 72 year old female who is accompanied by his niece at the bedside and has medical history remarkable for hypertension, seizures and "ophthalmic amyloidosis", comes to the emergency department as worsening lower extremities weakness, apparently went out to pay some bills and the patient was unable to get out of the car, it was noted that she was weaker on her right lower extremities, she denies any tingling, numbness of any extremity, vision problems, his niece tells me that she was doing if any movements with the right side of her mouth and tells me that she noticed that her 4 extremities are stiff on and off. Patient walks with a walker secondary to unsteadiness. The patient does not have any history of strokes in the past. Denies nausea, vomiting, dizziness, fever, chills, shortness of breath, chest pain, abdominal pain. Denies fecal or urinary incontinence. Patient seems mildly confused in the emergency department unable to answer some questions timely and her niece tells me that this is not her baseline usually she is sharp answering questions. CT of the head negative. There was concerns for TIA versus acute stroke and decided to keep the patient under observation tonight. Hospital Course Hospital Course: Ms. Pinzon is a 72 yr old female with a PMH of hypertension, seizures and "ophthalmic amyloidosis" who was initially brought in due to worsening leg weakness (?R>L leg). She was admitted for possible TIA. She was started on aspirin. Brain MRI was pursued and came back normal. Carotid Doppler was also normal. Patient's weakness did completely resolve and she was able to ambulate and work well with physical therapist. Patient's acute encephalopathy upon presentation also resolved and she came back to her baseline as well as well oriented. She does have noticeable left eye droop with mild left upper facial slanting which is not new. Patient's family says this is chronic due to her ophthalmic amyloidosis. Patient also was noted to have thrombocytopenia with a platelet count of 88 on admission. She was given an outpatient appointment with hematology for further outpatient workup for her thrombocytopenia. Patient likely had a TIA. Deandre's weakness from a post seizure event was considered but family says that they were with the patient when she had the symptoms and she did not have manifestations of seizure. Patient's niece says that she would usually have significant deviation of her mouth and lips and blank staring when she has seizure episodes. She says her seizure has been well controlled and the last episode was more than 7 months ago. Patient says that she will have the patient live with her. Home health and home PT services will also be set up for patient. Physical Exam Vital Signs: Temp Pulse Resp BP Pulse Ox 98.6 F 63 16 144/76 H 99 07/31/18 16:22 07/31/18 16:22 07/31/18 16:22 07/31/18 16:22 07/31/18 16:22 Intake & Output 07/30/18 07/31/18 08/01/18 06:59 06:59 06:59 Intake Total 240 891 Output Total 200 600 Balance 40 291 Weight 148 lb 9.465 oz 144 lb 2.917 oz General appearance: PRESENT: no acute distress, thin Head exam: PRESENT: atraumatic, normocephalic Eye exam: PRESENT: conjunctiva pink, EOMI, PERRLA. ABSENT: scleral icterus Ear exam: PRESENT: normal external ear exam Mouth exam: PRESENT: moist, tongue midline Neck exam: ABSENT: carotid bruit, JVD, lymphadenopathy, thyromegaly Respiratory exam: PRESENT: clear to auscultation shilpa. ABSENT: rales, rhonchi, wheezes Cardiovascular exam: PRESENT: RRR. ABSENT: diastolic murmur, rubs, systolic murmur Pulses: PRESENT: normal dorsalis pedis pul GI/Abdominal exam: PRESENT: normal bowel sounds, soft. ABSENT: distended, guarding, mass, organolmegaly, rebound, tenderness Rectal exam: PRESENT: deferred Neurological exam: PRESENT: alert, awake, oriented to person, oriented to place , oriented to time, oriented to situation, CN II-XII grossly intact - noticeable left eye droop with mild left upper facial slanting. ABSENT: motor sensory deficit Results Laboratory Results: 07/30/18 03:49 07/30/18 03:49 Impressions: Chest X-Ray 07/28/18 00:00 IMPRESSION: NO ACUTE RADIOGRAPHIC FINDING IN THE CHEST. Head CT 07/28/18 00:00 IMPRESSION: NORMAL BRAIN CT WITHOUT CONTRAST. EVIDENCE OF ACUTE STROKE: NO. Head MRI 07/29/18 00:00 IMPRESSION: Tiny chronic appearing pontine infarcts. No acute ischemic change. No acute intracranial hemorrhage, mass effect, or midline shift EVIDENCE OF ACUTE STROKE: NO. Carotid Doppler Study 07/31/18 07:55 IMPRESSION: NO HEMODYNAMICALLY SIGNIFICANT STENOSIS. Qualifiers - * PATIENT BEING DISCHARGED WITH ANY OF THE FOLLOWING DIAGNOSIS: No
== END 2018-07-31 17:40 | disposition home or self-care (01) ==
LOC: ER 19:10 → EH 22:55 → INTOOBSV 22:55 → ICU 07-29 01:00 → 2N 07-30 20:10
PROVIDERS: ADMIT Internal Medicine; ATTEND Internal Medicine
DX: G45.9 Transient cerebral ischemic attack, unspecified (principal); G93.40 Encephalopathy, unspecified; D69.6 Thrombocytopenia, unspecified; I10 Essential (primary) hypertension; R26.81 Unsteadiness on feet; E85.89 Other amyloidosis; G40.909 Epilepsy, unspecified, not intractable, without status epilepticus; M62.81 Muscle weakness (generalized); Z79.899 Other long term (current) drug therapy; Z79.82 Long term (current) use of aspirin; Z60.2 Problems related to living alone; Z82.49 Family history of ischemic heart disease and other diseases of the circulatory system; Z80.8 Family history of malignant neoplasm of other organs or systems; Z82.0 Family history of epilepsy and other diseases of the nervous system; Z87.891 Personal history of nicotine dependence
CPT/HCPCS: 93005; 99285; 36415 ×3; 82553; 82962; 80307 ×2; 82550; 84443; 85025; 85027 ×2; 80048 ×2; 80053; 81001; 84484; 80061; 83880; 93880; 70551; 71045; 70450; 93010; 97110 ×2; 97116 ×2; 97162; 97530; 97535; 97166; G0378 ×5; A9270 ×19; C9113; J7030; G8978; G8979; G8987; G8988; S0164